=== PATIENT | male | born 1990 | race Two or more races ===

== ENCOUNTER 2024-07-17 11:57 | Outpatient (AMB) | payer BC, SELFPAY ==
--- NOTE | 2024-07-17 12:41 | MHC.OFFWIV ---
Intake Vital Signs 07/17/24 12:42 Height 5 ft 8 in Weight 156 lb BMI 23.7 BP 130/80 Blood Pressure Location Lt brachial Position Sitting Pulse 86 Pulse Source Pulse Oximeter Temp 98.8 F Temp Source Oral Pulse Oximetry (%) 98 Oxygen Delivery Method Room Air Intake Visit Reasons: [employer] Stomach pain, nausea, vomiting Intake Note: Patient here for stomach pain, diarrhea, nausea and vomiting that started this morning. Patient Tobacco Use Status: Never used Tobacco Allergies No Known Allergies Allergy (Verified 07/17/24 12:44) Do you need a note to return to daycare/school/sports/work: Yes HPI HPI Comments History of Present Illness Details 33 y/o Male patient who presents to the walk in clinic with c/o Abdominal Pain associated with Nausea and vomiting since Last night. Pt does report h/o Crohn's disease, he was diagnosed in [place]. He moved to [facility] ~ 5 years ago. Reports that usually the GI doctor from would give him Prednisone to manage the Flare up, he was never put on Maintenance medication. [facility] Medical History (Updated 07/17/24 @ 13:14 by Germania Hernandez NP) Nausea vomiting and diarrhea Abdominal pain Social History Patient Tobacco Use Status: Never used Tobacco Review of Systems Const All systems reviewed & are unremarkable except as noted in HPI and below Physical Exam Vital Signs: Last Vital Signs Temp 98.8 F 07/17/24 12:42 Pulse 86 07/17/24 12:42 BP 130/80 07/17/24 12:42 Pulse Ox 98 07/17/24 12:42 Oxygen Delivery Method Room Air 07/17/24 12:42 BMI result Body Mass Index 23.7 Const General: no acute distress; No comfortable Nutritional Appearance: thin Orientation/consciousness: patient oriented x3 Resp Effort & Inspection: normal respiratory effort Cardio Heart sounds: S1 normal heart sound present and S2 normal heart sound present GI Palpation (GI): Soft to palpation, not firm, Tenderness to palpation present (GI) (Generalized Tenderness), Guarding due to palpation present (GI), not rigid, No hepatosplenomegaly present and no hernias Percussion: Yes normal to percussion Auscultation: Hyperactive bowel sounds present Rectal Exam - Male: Yes deferred Neuro General: patient oriented x3, gait normal and moves all extremities Psych Speech and movement: Normal speech and movement present Assessment & Plan Assessment & Plan (1) Abdominal pain: Code(s): R10.9 - Unspecified abdominal pain Qualifiers: Abdominal location: generalized Qualified Code(s): R10.84 - Generalized abdominal pain Plan: Per Patient he was diagnosed with Crohn's disease while living in . Pt will need Proper management of this condition with GI specialist. Ordered Symptom relief medications (Reglan and Zofran) today. (2) Nausea vomiting and diarrhea: Code(s): R11.2 - Nausea with vomiting, unspecified; R19.7 - Diarrhea, unspecified Plan: Per Patient he was diagnosed with Crohn's disease while living in . Pt will need Proper management of this condition with GI specialist. Ordered Symptom relief medications (Reglan and Zofran) today. Medications: New ondansetron 8 mg PO Q8H 20 tabs 0RF R10.84 - Generalized abdominal pain, R11.2 - Nausea with vomiting, unspecified, R19.7 - Diarrhea, unspecified metoclopramide HCl (Reglan) 10 mg PO Q6H PRN 30 tabs 0RF nausea and vomiting R10.84 - Generalized abdominal pain, R11.2 - Nausea with vomiting, unspecified, R19.7 - Diarrhea, unspecified Coding Level of Care Code New Pt Level 4 (91222) Diagnoses Generalized abdominal pain R10.84 Abdominal location: generalized Nausea vomiting and diarrhea R11.2; R19.7 Time Spent (min) 20
[2024-07-17 12:42] VITALS: BP 130/80; PULSE 86; TEMP 37.1; O2SAT 98; BMI 23.7
== END 2024-07-17 13:06 | disposition home or self-care (01) ==
PROVIDERS: Visit Provider Nurse Practitioner Family
DX: R10.84 Generalized abdominal pain (principal); R11.2 Nausea with vomiting, unspecified; R19.7 Diarrhea, unspecified

== ENCOUNTER → 2024-07-17 11:57 | Outpatient (BNVA) | payer BC, SELFPAY | DX: Z13.89 Encounter for screening for other disorder (principal) ==